=== PATIENT | female | born 1960 | race Two or more races ===

== ENCOUNTER 2019-07-10 20:00 | Emergency (ER) | payer OTHER ==
[~2019-07-10] VITALS: Ht 160 cm; Wt 93.0 kg
[~2019-07-10 20:00] MED LIST: ANTIVERT25 M1 PO; ATARAX25 MG PO; CATAFLAM50 MG PO; CIPRO500 MG PO; KETO10TA2 PO; MEDROLPACK PO; NEURONTIN PO; NEURONTIN300 MG PO; PROTONIX40 MG; ROBINUL FORTE2 MG; SKELAXIN800 MG PO; SMZ-TMP DS 800-1 TAB PO; SYNTHROID75 MCG; XARELTO20 MG PO; ZOCOR20 MG PO; ZYRTEC10 M3 PO
== END 2019-07-10 23:19 | disposition home or self-care (01) ==
LOC: ER 20:00
DX: K29.00 Acute gastritis without bleeding (principal)

== ENCOUNTER 2020-08-09 23:27 | Emergency (ER) | payer OTHER ==
[~2020-08-09] VITALS: Ht 160 cm; Wt 81.6 kg
[2020-08-10] MEDS ORDERED: PROAIR RESPICL90 MCG IH (09:00)
[2020-08-10] MEDS ORDERED: MEDROLPACK PO (09:00)
[2020-08-10] MEDS ORDERED: ZITHROMAX500 MG PO (09:00)
[2020-08-10] MEDS ORDERED: TUSNEL LIQUID178 ML PO (09:00)
== END 2020-08-10 09:32 | disposition home or self-care (01) ==
LOC: ER 23:27
DX: U07.1 COVID-19 (principal); R50.9 Fever, unspecified

== ENCOUNTER 2021-06-02 11:09 | Inpatient (IN) | payer OTHER ==
[~2021-06-02] VITALS: Ht 154.9 cm; Wt 81.6 kg
[~2021-06-02 11:09] MED LIST changes: +PROAIR RESPICL90 MCG IH; +TUSNEL LIQUID178 ML PO; +ZITHROMAX500 MG PO
== END 2021-06-12 13:44 | disposition home or self-care (01) | DRG 392 ==
LOC: ER 11:09 → SEC-K 13:27 → MEDI 06-03 00:24 → SURG 06-03 01:35
PROVIDERS: ADMIT Surgery; ATTEND Surgery
PROC: BW21ZZZ Computerized Tomography (CT Scan) of Abdomen and Pelvis (ICD-10-PCS; 2021-06-02)
PROC: 02HV33Z Insertion of Infusion Device into Superior Vena Cava, Percutaneous Approach (ICD-10-PCS; principal; 2021-06-03)
PROC: BW211ZZ Computerized Tomography (CT Scan) of Abdomen and Pelvis using Low Osmolar Contrast (ICD-10-PCS; 2021-06-09)
DX: K57.20 Diverticulitis of large intestine with perforation and abscess without bleeding (principal); E86.0 Dehydration; K59.09 Other constipation; E66.9 Obesity, unspecified; E03.9 Hypothyroidism, unspecified; E78.5 Hyperlipidemia, unspecified; Z87.442 Personal history of urinary calculi

== ENCOUNTER 2021-07-05 16:49 | Emergency (ER) | payer OTHER ==
[~2021-07-05] VITALS: Ht 160 cm; Wt 89.8 kg
[2021-07-06] MEDS ORDERED: CIPRO500 MG PO (15:14)
[2021-07-06] MEDS ORDERED: FLAGYL375 MG PO (15:16)
== END 2021-07-06 15:41 | disposition home or self-care (01) ==
LOC: ER 16:49
DX: K57.32 Diverticulitis of large intestine without perforation or abscess without bleeding (principal); R10.9 Unspecified abdominal pain

== ENCOUNTER 2021-08-02 05:00 | Day surgery (SDC) | payer OTHER ==
[~2021-08-02 05:00] MED LIST changes: +FLAGYL375 MG PO
== END 2021-08-02 11:30 | disposition home or self-care (01) ==
LOC: AMB-ENDOS 05:00
PROVIDERS: ATTEND Surgery
DX: K62.89 Other specified diseases of anus and rectum (principal); Z20.822 Contact with and (suspected) exposure to COVID-19

== ENCOUNTER 2021-08-18 08:36 | Inpatient (IN) | payer OTHER ==
[~2021-08-18] VITALS: Ht 160 cm; Wt 86.6 kg
== END 2021-08-29 11:55 | disposition home or self-care (01) | DRG 331 ==
LOC: O/R 08-25 05:14 → SURH 08-25 05:14
PROVIDERS: ADMIT Surgery; ATTEND Surgery
PROC: 0DBP4ZZ Excision of Rectum, Percutaneous Endoscopic Approach (ICD-10-PCS; 2021-08-25)
PROC: 0DJD8ZZ Inspection of Lower Intestinal Tract, Via Natural or Artificial Opening Endoscopic (ICD-10-PCS; 2021-08-25)
PROC: 0DTN4ZZ Resection of Sigmoid Colon, Percutaneous Endoscopic Approach (ICD-10-PCS; principal; 2021-08-25 07:00)
DX: K57.30 Diverticulosis of large intestine without perforation or abscess without bleeding (principal); R10.9 Unspecified abdominal pain; E03.8 Other specified hypothyroidism; Z20.822 Contact with and (suspected) exposure to COVID-19

== ENCOUNTER 2024-05-08 15:33 | Emergency (ER) | payer OTHER ==
[~2024-05-08] VITALS: Ht 160 cm; Wt 83.0 kg
[2024-05-08] MEDS ORDERED: COZAAR25 MG PO (16:01)
[2024-05-08] MEDS ORDERED: ONDANSETRON HCL 2 MG/ML VIAL IV ONE (17:15)
[2024-05-08] MEDS ORDERED: FAMOTIDINE/PF 20 MG/2 ML VIAL IV ONE (17:15)
[2024-05-08] MEDS ORDERED: 0.9 % SODIUM CHLORIDE 500 ML IV ONE (17:15)
[2024-05-08] MEDS ORDERED: ACETAMINOPHEN WITH CODEINE 1 UDTAB TABLET PO ONE (17:30)
[2024-05-08 17:33] LABS: HEMATOCRIT 44.4 % (36.0-45.00); HEMOGLOBIN 15.1 g/dL (12.0-15.00); MEAN CELL VOLUME 88.8 fL (80.00-100.00); MEAN CORPUSCULAR HEMOGLOBIN 30.3 pg (27.00-32.0); MEAN CORPUSCULAR HGB CONC 34.1 g/dl (32.0-36.0); PLATELET COUNT 284 K/uL (150-450); RED BLOOD COUNT 4.99 M/uL (4.00-6.00)
[2024-05-08 18:35] LABS: ALBUMIN 3.7 gm/dL (3.4-5.0); BILIRUBIN TOTAL 0.57 mg/dL (0.3-1.2); CALCIUM 9.5 mg/dL (8.5-10.1); CREATININE SERUM 0.82 mg/dL (0.55-1.02); GFR 70.18; GLOBULINA 3.4 G/DL (2.4-3.5); POTASSIUM 3.96 mEq/L (3.5-5.1); TOTAL PROTEIN 7.1 gm/dL (6.4-8.2)
[2024-05-08 18:59] LABS: PH,URINE 5.5 (5.0-8.0); URINE APPEARANCE Cloudy; URINE BILIRRUBIN Negative (NEGATIVE); URINE BLOOD Large; URINE COLOR Dark Yellow; URINE GLUCOSE Negative (NEGATIVE); URINE KETONE Trace (NEGATIVE); URINE LEUKOCYTE Moderate; URINE NITRATE Negative; URINE PROTEIN 30 (NEGATIVE); URINE UROBILINOGEN 0.2 E.U./dl
[2024-05-08 19:07] LABS: URINE BACTERIA 1795.3 uL (0.0-1933); URINE EPITHELIAL CELLS 54.7 uL (0.0-38.8); URINE RBC 2681.5 uL (0.0-20.8); URINE WBC 165.4 uL (0.0-23.2)
[2024-05-08] MEDS ORDERED: CEFTRIAXONE SODIUM 1,000 MG VIAL IV ONE (20:45)
[2024-05-08] MEDS ORDERED: TAMSULOSIN HCL 0.4 MG CAP PO ONE (20:45)
[2024-05-08] MEDS ORDERED: TAMS0.4C PO (21:12)
[2024-05-08] MEDS ORDERED: DOLOGESIC 500-1 EACH PO (21:12)
[2024-05-08] MEDS ORDERED: DUI500 PO (21:12)
== END 2024-05-08 21:44 ==
LOC: ER 15:34
PROVIDERS: Emergency Medicine; Nurse Practitioner Family
DX: N13.2 Hydronephrosis with renal and ureteral calculous obstruction (principal); I10 Essential (primary) hypertension; Z88.8 Allergy status to other drugs, medicaments and biological substances

== ENCOUNTER 2024-08-07 13:21 | Emergency (ER) | payer OTHER ==
[~2024-08-07] VITALS: Ht 160 cm; Wt 85.7 kg
[~2024-08-07 13:21] MED LIST changes: +COZAAR25 MG PO; +DOLOGESIC 500-1 EACH PO; +DUI500 PO; +TAMS0.4C PO
[2024-08-07] MEDS ORDERED: 0.9 % SODIUM CHLORIDE 500 ML IV ONE (15:30)
[2024-08-07] MEDS ORDERED: ONDANSETRON HCL 2 MG/ML VIAL IV ONE (15:30)
[2024-08-07] MEDS ORDERED: TAMSULOSIN HCL 0.4 MG CAP PO ONE ×2 (15:30→15:46)
[2024-08-07] MEDS ORDERED: MEPERIDINE HCL 25 MG/ML AMPUL IV ONE (15:45)
[2024-08-07] MEDS ORDERED: ONDANSETRON HCL 2 MG/ML VIAL ONE (15:46)
[2024-08-07 16:27] LABS: HEMATOCRIT 41.9 % (36.0-45.00); HEMOGLOBIN 13.9 g/dL (12.0-15.00); MEAN CELL VOLUME 90.9 fL (80.00-100.00); MEAN CORPUSCULAR HEMOGLOBIN 30.2 pg (27.00-32.0); MEAN CORPUSCULAR HGB CONC 33.2 g/dl (32.0-36.0); PLATELET COUNT 253 K/uL (150-450); RED BLOOD COUNT 4.61 M/uL (4.00-6.00); RED CELL DISTRIBUTION WIDTH 14.6 % (11.5-14.5)
[2024-08-07 16:58] LABS: ALBUMIN 3.8 gm/dL (3.4-5.0); BILIRUBIN TOTAL 0.71 mg/dL (0.3-1.2); CALCIUM 9.4 mg/dL (8.5-10.1); CREATININE SERUM 0.99 mg/dL (0.55-1.02); GFR 56.47; GLOBULINA 3.2 G/DL (2.4-3.5); POTASSIUM 3.51 mEq/L (3.5-5.1)
[2024-08-07 17:13] LABS: PH,URINE 5.5 (5.0-8.0); URINE APPEARANCE Clear; URINE BILIRRUBIN Negative (NEGATIVE); URINE BLOOD Large; URINE COLOR Yellow; URINE GLUCOSE Negative (NEGATIVE); URINE KETONE Negative (NEGATIVE); URINE LEUKOCYTE Trace; URINE NITRATE Negative; URINE PROTEIN 30 (NEGATIVE); URINE UROBILINOGEN 0.2 E.U./dl
[2024-08-07 17:17] LABS: URINE BACTERIA 18.3 uL (0.0-1933); URINE EPITHELIAL CELLS 14.2 uL (0.0-38.8); URINE RBC 264.8 uL (0.0-20.8); URINE WBC 55.2 uL (0.0-23.2)
[2024-08-07 17:20] LABS: URINE CAST 1.03 uL (0.0-1.40)
== END 2024-08-07 19:37 | disposition home or self-care (01) ==
LOC: ER 13:23
PROVIDERS: Emergency Medicine
DX: N20.1 Calculus of ureter (principal); N13.30 Unspecified hydronephrosis; R10.9 Unspecified abdominal pain; I10 Essential (primary) hypertension; E03.8 Other specified hypothyroidism; Z91.041 Radiographic dye allergy status; Z88.6 Allergy status to analgesic agent